=== PATIENT | male | born 1985 | race Two or more races ===

== ENCOUNTER → 2018-04-11 | Outpatient (CLI) | payer OTHER | END | disposition home or self-care (01) | LOC: RAD 501 13:38 | DX: M25.562 Pain in left knee (principal) ==

== ENCOUNTER 2018-05-02 07:03 | Outpatient (CLI) | payer OTHER ==
[2018-05-02] MEDS ORDERED: SEROQUEL400 MG PO (12:24)
[2018-05-02] MEDS ORDERED: ZOLOFT100 MG PO (12:25)
[2018-05-02] MEDS ORDERED: LOPRESSOR25 MG PO (12:25)
[2018-05-02] MEDS ORDERED: LITHIUM CARBON150 MG PO (12:25)
[2018-05-02] MEDS ORDERED: ALTACE5 MG PO (12:25)
[2018-05-02] MEDS ORDERED: CLONAZEPAM2 MG PO (12:26)
[2018-05-02] MEDS ORDERED: DALMANE30 MG PO (12:26)
[2018-05-02] MEDS ORDERED: REMERON15 MG PO (12:27)
== END 2018-05-02 07:56 | disposition home or self-care (01) ==
LOC: EKG 07:03
DX: I49.8 Other specified cardiac arrhythmias (principal)

== ENCOUNTER 2018-05-14 04:45 | Day surgery (SDC) | payer OTHER ==
[~2018-05-14 04:45] MED LIST: ALTACE5 MG PO; CLONAZEPAM2 MG PO; DALMANE30 MG PO; LITHIUM CARBON150 MG PO; LOPRESSOR25 MG PO; REMERON15 MG PO; SEROQUEL400 MG PO; ZOLOFT100 MG PO
== END 2018-05-14 16:55 | disposition home or self-care (01) ==
LOC: CIR.AMB 04:45
DX: M23.342 Other meniscus derangements, anterior horn of lateral meniscus, left knee (principal); M93.262 Osteochondritis dissecans, left knee; M65.862 Other synovitis and tenosynovitis, left lower leg

== ENCOUNTER 2018-05-16 11:35 | Outpatient (CLI) | payer OTHER | END 2018-05-16 11:44 | disposition home or self-care (01) | LOC: RAD 501 11:35 | DX: M25.562 Pain in left knee (principal) ==

== ENCOUNTER 2019-02-21 09:00 | Outpatient (CLI) | payer OTHER | END 2019-02-21 09:19 | disposition home or self-care (01) | LOC: RAD 09:00 | DX: M79.605 Pain in left leg (principal); M93.262 Osteochondritis dissecans, left knee ==

== ENCOUNTER 2024-10-19 17:17 | Emergency (ER) | payer OTHER ==
[~2024-10-19] VITALS: Ht 167.6 cm; Wt 89.4 kg
[2024-10-19] MEDS ORDERED: CYCLOBENZAPRINE5 MG PO (17:46)
[2024-10-19] MEDS ORDERED: PERCOCET 5-3251 EACH (17:46)
[2024-10-19] MEDS ORDERED: CEFTRIAXONE SODIUM 1,000 MG VIAL IM ONE (18:45)
== END 2024-10-19 20:23 | disposition home or self-care (01) ==
LOC: ER 17:17
DX: T81.31XA Disruption of external operation (surgical) wound, not elsewhere classified, initial encounter (principal); F32.89 Other specified depressive episodes; E11.9 Type 2 diabetes mellitus without complications
CPT/HCPCS: 96372; 99282; J0696

== ENCOUNTER 2024-12-04 08:00 | Inpatient (IN) | payer OTHER ==
[~2024-12-04] VITALS: Ht 152.4 cm; Wt 88.9 kg
[~2024-12-04 08:00] MED LIST changes: +CYCLOBENZAPRINE5 MG PO; +PERCOCET 5-3251 EACH
[2024-12-04 09:24] VITALS: BP 116/81
[2024-12-04] MEDS ORDERED: OZEMPIC1 MG/0.71 (09:27)
[2024-12-04] MEDS ORDERED: [UNRECOGNIZED DRUG - OTHER] (09:27)
[2024-12-04] MEDS ORDERED: LITHOBID300 M1 (09:28)
[2024-12-04] MEDS ORDERED: QUETIAPINE (09:28)
[2024-12-04 09:29] LABS: INR 1.02
[2024-12-04] MEDS ORDERED: VALSARTAN320 MG (09:29)
[2024-12-04] MEDS ORDERED: ROSUVASTATIN CA10 MG (09:29)
[2024-12-10] MEDS ORDERED: TRANEXAMIC ACID 100MG/1ML (1000MG) AMPUL ONE (07:50)
[2024-12-10] MEDS ORDERED: CEFAZOLIN SODIUM 1,000 MG VIAL ONE (07:50)
[2024-12-10] MEDS ORDERED: ONDANSETRON HCL 2 MG/ML VIAL IV PRN (08:15)
[2024-12-10] MEDS ORDERED: RIVAROXABAN 10 MG TAB PO SCH (09:00)
[2024-12-10] MEDS ORDERED: VANCOMYCIN HCL 1,000 MG VIAL ONE (10:22)
[2024-12-10] MEDS ORDERED: OxyCODONE HCL 5 MG TABLET (ROXICODONE) PO SCH (12:00)
[2024-12-10] MEDS ORDERED: CEFAZOLIN SODIUM 1,000 MG VIAL IV SCH (12:00)
[2024-12-10] MEDS ORDERED: MORPHINE SULFATE 4 MG/ML CARTRIDGE IV SCH (12:00)
[2024-12-10] MEDS ORDERED: ENALAPRILAT DIHYDRATE 1.25 MG/ML VIAL IV PRN (16:00)
[2024-12-10] MEDS ORDERED: LITHIUM CARBONATE 300 MG CAPSULE PO SCH (17:00)
[2024-12-10] MEDS ORDERED: ROSUVASTATIN CALCIUM 10 MG TABLET PO SCH (17:00)
[2024-12-10] MEDS ORDERED: GABAPENTIN 100 MG CAPSULE PO SCH (21:00)
[2024-12-10] MEDS ORDERED: ORPHENADRINE CITRATE 100 MG TABLET PO SCH (21:00)
[2024-12-11] VITALS: BP 123/85; O2SAT 97
[2024-12-11 06:24] LABS: BASO % 0.3 % (0.1-1.2); EOS # 0.15 (0.04-0.54); EOS % 1.5 % (0.7-7.0); LYMPH # 1.53 (1.18-3.74); LYMPH % 15.4 % (19.3-53.1); MEAN PLATELET VOLUME 9.30 fl (9.4-12.4); MONO # 0.64 (0.24-0.82); MONO % 6.5 % (4.7-12.5); NEUT # 7.53 (1.56-6.13); NEUT % 76.0 % (34.0-71.1); RED CELL DISTRIBUTION WIDTH 12.9 % (11.6-14.4)
[2024-12-11] MEDS ORDERED: BUPROPION HCL 150 MG TABLET.SA PO SCH (09:00)
[2024-12-11] MEDS ORDERED: PATIENTS OWN MEDICATION (MEDICAMENTO EN PISO) PO SCH (09:00)
[2024-12-11] MEDS ORDERED: QUETIAPINE FUMARATE 25 MG TABLET PO SCH (09:00)
[2024-12-11 10:07] VITALS: BP 117/82; O2SAT 98
[2024-12-11] MEDS ORDERED: Cyanocobalamin/Mecobalamin 1 TAB.SL SL NR (15:30)
[2024-12-11] MEDS ORDERED: IRON FUM,PS/FOLIC ACID/VITC/B3 1 CAP CAPSULE PO NR (15:30)
[2024-12-11 17:26] VITALS: BP 133/87; O2SAT 100
[2024-12-11 23:59] VITALS: BP 140/83; O2SAT 97
[2024-12-12 06:39] LABS: BASO % 0.1 % (0.1-1.2); EOS # 0.05 (0.04-0.54); EOS % 0.4 % (0.7-7.0); LYMPH # 1.17 (1.18-3.74); LYMPH % 8.7 % (19.3-53.1); MEAN PLATELET VOLUME 9.60 fl (9.4-12.4); MONO # 1.10 (0.24-0.82); MONO % 8.2 % (4.7-12.5); NEUT # 10.99 (1.56-6.13); NEUT % 82.2 % (34.0-71.1); RED CELL DISTRIBUTION WIDTH 12.7 % (11.6-14.4)
[2024-12-12 08:00] VITALS: BP 144/95; O2SAT 100
[2024-12-12 08:17] LABS: BUN CREA RATIO 20.0 (7.0-25.0); CREATININE SERUM 0.82 mg/dL (0.70-1.30); GFR 105.15; GLUCOSE FASTING 121.0 mg/dL (65-100); OSMOLALITY SERUM 276.0 MOSM/KG (275-295)
[2024-12-12 08:28] LABS: COVID-19 AG NEGATIVE (NEGATIVE)
[2024-12-12] MEDS ORDERED: IRON FUM,PS/FOLIC ACID/VITC/B3 1 CAP CAPSULE PO SCH (09:00)
[2024-12-12] MEDS ORDERED: Cyanocobalamin/Mecobalamin 1 TAB.SL SL SCH (09:00)
[2024-12-12] MEDS ORDERED: NORFLEX100MG PO (12:23)
[2024-12-12] MEDS ORDERED: XARELTO10 MG PO (12:24)
[2024-12-12] MEDS ORDERED: GABAPENTIN100 MG PO (12:24)
[2024-12-12] MEDS ORDERED: PERCOCET 5-3251 EACH PO (12:26)
[2024-12-12] MEDS ORDERED: NASAL MIST126 ML NASAL (12:26)
[2024-12-12] MEDS ORDERED: MORPHINE SULFATE 4 MG/ML CARTRIDGE IV SCH (13:01)
[2024-12-12 16:11] VITALS: BP 140/85; O2SAT 98
[2024-12-12] MEDS ORDERED: OxyCODONE HCL 5 MG TABLET (ROXICODONE) PO SCH (18:00)
== END 2024-12-12 16:19 | disposition home or self-care (01) | DRG 470 ==
LOC: SURG 12-10 06:00 → O/R 12-10 06:00 → SURH 12-10 08:00 → SURG 12-10 12:49
PROVIDERS: ADMIT Orthopaedic Surgery; ATTEND Orthopaedic Surgery
PROC: 0SRD0JZ Replacement of Left Knee Joint with Synthetic Substitute, Open Approach (ICD-10-PCS; principal; 2024-12-10 09:30)
DX: M17.12 Unilateral primary osteoarthritis, left knee (principal); D62 Acute posthemorrhagic anemia; M85.662 Other cyst of bone, left lower leg